=== PATIENT | female | born 1985 | race Caucasian/White ===

== ENCOUNTER 2016-09-14 19:16 | Emergency (ER) | payer OTHER ==
--- NOTE | 2016-09-14 21:19 | ED CLINICAL REPORT ---
Clinical Report - Physicians/Mid Levels [facility] [address] [place] [address] 09/14/2016 19:16 Patient: APOLLO CHANDLER Time Seen: 19:49 Sep 14 2016. Arrived- By private vehicle. Historian- patient. HISTORY OF PRESENT ILLNESS Chief Complaint: PELVIC PAIN. WANTS TEST. This started several days ago and still present. It was gradual in onset and has been waxing/waning. The symptoms are described as mild. Modifying factors- relieved by rest. Relief was complete. Not worsened by anything. The patient has had intermittent, crampy pelvic pain (noted yesterday and earlier today, but not now). No low back pain, flank pain, abnormal bleeding, pain with urination or urinary frequency. No urgency of urination or hematuria. Last normal menstrual period- 1 month ago. Currently . confirmed with home test. Similar symptoms previously: Recent medical care: Not recently seen/assessed. REVIEW OF SYSTEMS The patient has had nausea. No diarrhea, black stools, fever, eye discomfort or sore throat. No cough, chest pain or skin rash. All systems otherwise negative, except as recorded above. PAST HISTORY ( PCP: Dr Mackenzie or Dr Lawson Spontaneous (Miscarriage). Mood Disorder. Concussion. Vomiting. Pyelonephritis. Hypertension. SURGERIES: Colposcopy.). SOCIAL HISTORY Never smoker. No alcohol use or drug use. Is a local resident. ADDITIONAL NOTES The nursing notes have been reviewed. PHYSICAL EXAM Vital Signs: 09/14/2016 19:53 BP: 152/87. HR: 84. RR: 18. O2 saturation: 100%. Temp: 97.2 F. Appearance: Alert. Oriented X3. No acute distress. HEENT: Normal external inspection. Eyes: No scleral icterus or pale conjunctivae. ENT: Pharynx normal. No hearing deficit or pharyngeal erythema. Neck: Neck supple. CVS: Heart sounds normal. Respiratory: No respiratory distress. Breath sounds normal. Abdomen: Soft and nontender. No organomegaly. No mass. Back: Normal external inspection. Skin: Skin warm and dry. Normal skin color. No rash. Normal skin turgor. Extremities: Extremities nontender. No calf tenderness. No lower extremity edema. Neuro: Oriented X 3. Mood/affect normal. No motor deficit. LABS, X-RAYS, AND EKG Laboratory Tests: UA-Culture if indicated: (ERICKA: 09/14/2016 20:07) ( MsgRcvd 09/14/2016 21:14) Final results Test Result Flag Units (Reference) URINE COLOR YELLOW URINE APPEARANCE CLEAR URINE GLUCOSE NEGATIVE (NEGATIVE) URINE BILIRUBIN NEGATIVE (NEGATIVE) URINE KETONE NEGATIVE (NEGATIVE) URINE SPECIFIC GRAVITY 1.025 (1.010-1.030) URINE PH 6.0 (5.0-8.0) URINE PROTEIN NEGATIVE (NEGATIVE) URINE UROBILINOGEN 1.0 EU/dL (0.2-1.0) URINE NITRITE NEGATIVE (NEGATIVE) URINE BLOOD TRACE-INTACT (NEGATIVE) URINE LEUK ESTERASE NEGATIVE (NEGATIVE) URINE RBC 3-5 rbc/hpf (0-1) URINE WBC 1-3 wbc/hpf (0-1) URINE EPITHELIAL CELLS 1-3 EPI/hpf (0-5) URINE BACTERIA FEW (1+) (NONE SEEN) URINE COMMENT CULT NOT INDICATED URINE CULTURES ARE SET-UP BASED ON THE FOLLOWING CRITERIA:POSITIVE NITRITEPOSITIVE LEUKOCYTE ESTERASEGREATER THAN 10 WHITE BLOOD CELLSMODERATE (2+) OR GREATER BACTERIA . HCG: Urine HCG negative Pulse Oximetry: 09/14/2016 19:53 O2 saturation: 100%. (FIO2 - room air). Interpretation: normal. PROGRESS AND PROCEDURES Course of Care: No pain or bleeding tonight and completely nontender abdominal exam. Neg preg now. Pt should be safe for close out pt follow up. Patient/family counseled. Old medical records ordered. (7 visits to [facility] ED in past 12 months). Disposition: Discharged. Condition: stable and improved. CLINICAL IMPRESSION Acute pelvic pain. (with negative test). Clinical picture does not suggest ectopic . INSTRUCTIONS Do not work for two days. Drink plenty of fluids. Warnings: Further evaluation is necessary in order to conduct further tests and assess the possibility of serious illness. It is very important to follow up with a physician. GENERAL WARNINGS: Return or contact your physician immediately if your condition worsens or changes unexpectedly, if not improving as expected, or if other problems arise. OTC Medications: Take acetaminophen (Tylenol, Datril, etc.) and ibuprofen (Advil, Nuprin, etc.) according to label instructions. Available over the counter. Follow-up: Follow up with your doctor in two days. Follow-up with: Ramon Mackenzie MD, Family Practice, , [facility], [address] [address] [place] [address]; [facility], , , [address] [place] [address], , [place], ; [facility], , , [facility]. [address], [place] [address]; [facility], Family Practice, , [address] [place] [address] Follow up in about two days. Follow-up with: Ramon Samuels MD, Obstetrics/Gynecology, , [facility], [address] [place] [address] Follow up in about three days if not better. (Electronically signed by Dario Navarro DO 09/14/2016 21:42)
--- NOTE | 2016-09-14 21:19 | ED CLINICAL REPORT ---
Clinical Report - Physicians/Mid Levels [facility] [address] [place] [address] 09/14/2016 19:16 Patient: APOLLO CHANDLER Time Seen: 19:49 Sep 14 2016. Arrived- By private vehicle. Historian- patient. HISTORY OF PRESENT ILLNESS Chief Complaint: PELVIC PAIN. WANTS TEST. This started several days ago and still present. It was gradual in onset and has been waxing/waning. The symptoms are described as mild. Modifying factors- relieved by rest. Relief was complete. Not worsened by anything. The patient has had intermittent, crampy pelvic pain (noted yesterday and earlier today, but not now). No low back pain, flank pain, abnormal bleeding, pain with urination or urinary frequency. No urgency of urination or hematuria. Last normal menstrual period- 1 month ago. Currently . confirmed with home test. Similar symptoms previously: Recent medical care: Not recently seen/assessed. REVIEW OF SYSTEMS The patient has had nausea. No diarrhea, black stools, fever, eye discomfort or sore throat. No cough, chest pain or skin rash. All systems otherwise negative, except as recorded above. PAST HISTORY ( PCP: Dr Mackenzie or Dr Lawson Spontaneous (Miscarriage). Mood Disorder. Concussion. Vomiting. Pyelonephritis. Hypertension. SURGERIES: Colposcopy.). SOCIAL HISTORY Never smoker. No alcohol use or drug use. Is a local resident. ADDITIONAL NOTES The nursing notes have been reviewed. PHYSICAL EXAM Vital Signs: 09/14/2016 19:53 BP: 152/87. HR: 84. RR: 18. O2 saturation: 100%. Temp: 97.2 F. Appearance: Alert. Oriented X3. No acute distress. HEENT: Normal external inspection. Eyes: No scleral icterus or pale conjunctivae. ENT: Pharynx normal. No hearing deficit or pharyngeal erythema. Neck: Neck supple. CVS: Heart sounds normal. Respiratory: No respiratory distress. Breath sounds normal. Abdomen: Soft and nontender. No organomegaly. No mass. Back: Normal external inspection. Skin: Skin warm and dry. Normal skin color. No rash. Normal skin turgor. Extremities: Extremities nontender. No calf tenderness. No lower extremity edema. Neuro: Oriented X 3. Mood/affect normal. No motor deficit. LABS, X-RAYS, AND EKG Laboratory Tests: UA-Culture if indicated: (ERICKA: 09/14/2016 20:07) ( MsgRcvd 09/14/2016 21:14) Final results Test Result Flag Units (Reference) URINE COLOR YELLOW URINE APPEARANCE CLEAR URINE GLUCOSE NEGATIVE (NEGATIVE) URINE BILIRUBIN NEGATIVE (NEGATIVE) URINE KETONE NEGATIVE (NEGATIVE) URINE SPECIFIC GRAVITY 1.025 (1.010-1.030) URINE PH 6.0 (5.0-8.0) URINE PROTEIN NEGATIVE (NEGATIVE) URINE UROBILINOGEN 1.0 EU/dL (0.2-1.0) URINE NITRITE NEGATIVE (NEGATIVE) URINE BLOOD TRACE-INTACT (NEGATIVE) URINE LEUK ESTERASE NEGATIVE (NEGATIVE) URINE RBC 3-5 rbc/hpf (0-1) URINE WBC 1-3 wbc/hpf (0-1) URINE EPITHELIAL CELLS 1-3 EPI/hpf (0-5) URINE BACTERIA FEW (1+) (NONE SEEN) URINE COMMENT CULT NOT INDICATED URINE CULTURES ARE SET-UP BASED ON THE FOLLOWING CRITERIA:POSITIVE NITRITEPOSITIVE LEUKOCYTE ESTERASEGREATER THAN 10 WHITE BLOOD CELLSMODERATE (2+) OR GREATER BACTERIA . HCG: Urine HCG negative Pulse Oximetry: 09/14/2016 19:53 O2 saturation: 100%. (FIO2 - room air). Interpretation: normal. PROGRESS AND PROCEDURES Course of Care: No pain or bleeding tonight and completely nontender abdominal exam. Neg preg now. Pt should be safe for close out pt follow up. Patient/family counseled. Old medical records ordered. (7 visits to [facility] ED in past 12 months). Disposition: Discharged. Condition: stable and improved. CLINICAL IMPRESSION Acute pelvic pain. (with negative test). Clinical picture does not suggest ectopic . INSTRUCTIONS Do not work for two days. Drink plenty of fluids. Warnings: Further evaluation is necessary in order to conduct further tests and assess the possibility of serious illness. It is very important to follow up with a physician. GENERAL WARNINGS: Return or contact your physician immediately if your condition worsens or changes unexpectedly, if not improving as expected, or if other problems arise. OTC Medications: Take acetaminophen (Tylenol, Datril, etc.) and ibuprofen (Advil, Nuprin, etc.) according to label instructions. Available over the counter. Follow-up: Follow up with your doctor in two days. Follow-up with: Ramon Mackenzie MD, Family Practice, , [facility], [address] [address]; [facility], , , [address] [place] [address], , [place], ; [facility], , , [facility]. [address], [place] [address]; [facility], Family Practice, , [address] [place] [address] Follow up in about two days. Follow-up with: Ramon Samuels MD, Obstetrics/Gynecology, , [facility], [address] [place] [address] Follow up in about three days if not better. (Electronically signed by Dario Navarro DO 09/14/2016 21:42)
--- NOTE | 2016-09-14 21:19 | ED NURSING NOTES ---
Clinical Report - Nurses [facility] [address] [place] [address] 09/14/2016 19:16 Patient: APOLLO CHANDLER TRIAGE 19:53 09/14/16. BP: 152/87. HR: 84. RR: 18. O2 saturation: 100%. Temp: 97.2 F. Pain level now 0/10. --19:54 Quintin Rivera R.N. Triage time 19:54 Sep 14 2016. Acuity: LEVEL 5. Chief Complaint: NAUSEA. --19:59 Quintin Rivera R.N. Weight: 81.6 kg stated. Height/Length: 63 inches Per Patient. BMI: 31.9. --19:54 Quintin Rivera R.N. Medications Citalopram Hydrobromide Oral. --19:57 Quintin Rivera R.N. Allergies Oxycodone. --19:57 Quintin Rivera R.N. History ( Pt requesting blood test for miss carriage that she had recently. pt was positive for urine preg on friday). No fever, weakness, cough or difficulty breathing. SOCIAL HX: Never smoker. No alcohol use or drug use. --19:59 Quintin Rivera R.N. PROBLEMS: Spontaneous (Miscarriage). OB History. Mood Disorder. . Concussion. Vomiting. Pyelonephritis. Hypertension. --19:56 Quintin Rivera R.N. ADDITIONAL SURGERIES: Colposcopy. --19:56 Quintin Rivera R.N. Interventions ID band on patient. To treatment room. --19:59 Quintin Rivera R.N. NURSING PROGRESS NOTES Call light placed in reach. Side rails up x 1. Bed placed in lowest position. Patient placed in chair. ( POC preg urine neg). --20:22 Quintin Rivera R.N. DISPOSITION / DISCHARGE Departure time: 2133 21:39 Sep 14 2016 21:39 Sep 14 2016. No learning barriers present. Discharge instructions provided and reviewed with the patient. Patient verbalized understanding. Written instructions provided in Mongolian. The patient was discharged by the physician. She was discharged home and accompanied by vp business development. She left the Emergency Department ambulatory. ( Pt ambulated on discharge steady on her feet pt verbalized understand of discharge instructions and follow up care). --21:39 Quintin Rivera R.N. 21:38 09/14/16. BP: 138/78. HR: 70. RR: 18. O2 saturation: 100%. Temp: 98.0 F. Pain level now 0/10. --21:39 Quintin Rivera R.N. Locked/Released at 09/15/2016 4:15 by Quintin Rivera R.N.
--- NOTE | 2016-09-14 21:19 | ED ORDER SUMMARY ---
..... Patient: APOLLO CHANDLER OrderSheet [facility] VisitID: [id number] [address] [place] [address] 31y, F Registration Date/Time: 09/14/2016 ORDER SHEET Weight: 81.6 kg (stated) Allergies: Oxycodone GENERAL ORDERS: POC - Urine hCG (19:59 09/14/2016 Denis MORRIS) (Ack 20:08 TBergley) (20:21 TBergley) UA-Culture if indicated Urgent (20:05 09/14/2016 jono MORRIS) (Ack 20:07 TBergley) (20:21 TBergley) MEDICATION ORDERS: IV FLUIDS: ORDER SHEET NOTES: [Electronically signed by Dario Navarro DO (21:42 09/14/2016)] [Electronically signed by Quintin Rivera R.N. (04:15 09/15/2016)] [Electronically locked/signed by Quintin Rivera R.N. (04:15 09/15/2016)]
--- NOTE | 2016-09-14 21:19 | ED NURSING NOTES ---
Clinical Report - Nurses [facility] [address] [place] [address] 09/14/2016 19:16 Patient: APOLLO CHANDLER TRIAGE 19:53 09/14/16. BP: 152/87. HR: 84. RR: 18. O2 saturation: 100%. Temp: 97.2 F. Pain level now 0/10. --19:54 Quintin Rivera R.N. Triage time 19:54 Sep 14 2016. Acuity: LEVEL 5. Chief Complaint: NAUSEA. --19:59 Quintin Rivera R.N. Weight: 81.6 kg stated. Height/Length: 63 inches Per Patient. BMI: 31.9. --19:54 Quintin Rivera R.N. Medications Citalopram Hydrobromide Oral. --19:57 Quintin Rivera R.N. Allergies Oxycodone. --19:57 Quintin Rivera R.N. History ( Pt requesting blood test for miss carriage that she had recently. pt was positive for urine preg on friday). No fever, weakness, cough or difficulty breathing. SOCIAL HX: Never smoker. No alcohol use or drug use. --19:59 Quintin Rivera R.N. PROBLEMS: Spontaneous (Miscarriage). OB History. Mood Disorder. . Concussion. Vomiting. Pyelonephritis. Hypertension. --19:56 Quintin Rivera R.N. ADDITIONAL SURGERIES: Colposcopy. --19:56 Quintin Rivera R.N. Interventions ID band on patient. To treatment room. --19:59 Quintin Rivera R.N. NURSING PROGRESS NOTES Call light placed in reach. Side rails up x 1. Bed placed in lowest position. Patient placed in chair. ( POC preg urine neg). --20:22 Quintin Rivera R.N. DISPOSITION / DISCHARGE Departure time: 2133 21:39 Sep 14 2016 21:39 Sep 14 2016. No learning barriers present. Discharge instructions provided and reviewed with the patient. Patient verbalized understanding. Written instructions provided in French. The patient was discharged by the physician. She was discharged home and accompanied by fingerprinter. She left the Emergency Department ambulatory. ( Pt ambulated on discharge steady on her feet pt verbalized understand of discharge instructions and follow up care). --21:39 Quintin Rivera R.N. 21:38 09/14/16. BP: 138/78. HR: 70. RR: 18. O2 saturation: 100%. Temp: 98.0 F. Pain level now 0/10. --21:39 Quintin Rivera R.N. Locked/Released at 09/15/2016 4:15 by Quintin Rivera R.N.
--- NOTE | 2016-09-14 21:19 | ED ORDER SUMMARY ---
..... Patient: APOLLO CHANDLER OrderSheet [facility] VisitID: [id number] [address] [place] [address] 31y, F Registration Date/Time: 09/14/2016 ORDER SHEET Weight: 81.6 kg (stated) Allergies: Oxycodone GENERAL ORDERS: POC - Urine hCG (19:59 09/14/2016 Denis MORRIS) (Ack 20:08 TBergley) (20:21 TBergley) UA-Culture if indicated Urgent (20:05 09/14/2016 jono MORRIS) (Ack 20:07 TBergley) (20:21 TBergley) MEDICATION ORDERS: IV FLUIDS: ORDER SHEET NOTES: [Electronically signed by Dario Navarro DO (21:42 09/14/2016)] [Electronically signed by Quintin Rivera R.N. (04:15 09/15/2016)] [Electronically locked/signed by Quintin Rivera R.N. (04:15 09/15/2016)]
--- NOTE | 2016-09-15 04:15 | ED DISCHARGE INSTRUCTIONS ---
Patient: APOLLO CHANDLER General Instructions [facility] VisitID: [id number] [address] [place] [address] 31y, F Registration Date/Time: 09/14/2016 Acute pelvic pain. (with negative test). INSTRUCTIONS Do not work for two days. Drink plenty of fluids. Warnings: Further evaluation is necessary in order to conduct further tests and assess the possibility of serious illness. It is very important to follow up with a physician. GENERAL WARNINGS: Return or contact your physician immediately if your condition worsens or changes unexpectedly, if not improving as expected, or if other problems arise. OTC Medications: Take acetaminophen (Tylenol, Datril, etc.) and ibuprofen (Advil, Nuprin, etc.) according to label instructions. Available over the counter. Follow-up: Follow up with your doctor in two days. Follow-up with: Ramon Mackenzie MD, [facility], , [facility], [address] [place] [address]; [facility], , , [address] [place] [address], ; [facility], , , [facility] [address], [place] [address]; [facility], [facility], , [address] [place] [address] Follow up in about two days. Follow-up with: Ramon Samuels MD, Obstetrics/Gynecology, , [facility], [address] [place] [address] Follow up in about three days if not better. ADDITIONAL INFORMATION Pelvic Pain, Uncertain Cause Based on your visit today, the exact cause of your pelvic pain is not certain. But your condition does not appear to be serious at this time. However, the signs of a serious problem may take more time to appear. Therefore, it is important for you to watch for any new symptoms or worsening of your condition. Home Care: Rest until you are feeling better. Avoid sexual intercourse until your pain goes away. You may use acetaminophen (Tylenol) or ibuprofen (Motrin, Advil) to control pain, unless another medicine was prescribed. [NOTE: If you have chronic liver or kidney disease or ever had a stomach ulcer or GI bleeding, talk with your doctor before using these medicines.] Follow Up with your doctor as advised. If a culture test was taken, call in two days for the results. If the culture is positive, you will be given more advice at that time. Otherwise, follow-up with your doctor or this facility as instructed. Get Prompt Medical Attention if any of the following occur: Fever of 100.4F (38C) or higher, or as directed by your healthcare provider Vaginal discharge Worsening pain Weakness, dizziness or fainting Unexpected vaginal bleeding or passage of peña or white tissue from the vagina Pain that moves to the right lower abdomen You have been given the following additional information: Pelvic Pain, Unknown Cause Do not work for two days. (Electronically signed by Dario Navarro DO 09/14/2016 21:42)
--- NOTE | 2016-09-15 04:15 | ED MED RECONCILIATION SUMMARY ---
Patient: APOLLO CHANDLER Medication Reconciliation Report [facility] VisitID: [id number] [place] [address] 31y, F Registration Date/Time: 09/14/2016 Weight: 81.6 kg Height/Length: 63 in. BMI: 31.9 ALLERGIES: Oxycodone The patient's Home Medications are listed below: THE FOLLOWING MEDICATIONS NEED TO BE RECONCILED: Citalopram Hydrobromide Oral The source(s) of the original Home Medication information: Not obtained. The following Medications were given to the patient in the Emergency Department: None. The following Medications were prescribed to the patient: Take acetaminophen (Tylenol, Datril, etc.) and ibuprofen (Advil, Nuprin, etc.) according to label instructions. Available over the counter. -- Dario Navarro, DO
--- NOTE | 2016-09-15 04:15 | ED MAR SUMMARY ---
..... Medication Administration Record [facility] [address] [place], [place] [id number] Patient: APOLLO CHANDLER Visit ID: [id number] 31y, F Weight: 81.6 kg Height/Length: 63 in BMI: 31.9 ALLERGIES: Oxycodone
--- NOTE | 2016-09-15 04:15 | ED DISCHARGE INSTRUCTIONS ---
Patient: APOLLO CHANDLER General Instructions [facility] VisitID: [id number] [address] [place] [address] 31y, F Registration Date/Time: 09/14/2016 Acute pelvic pain. (with negative test). INSTRUCTIONS Do not work for two days. Drink plenty of fluids. Warnings: Further evaluation is necessary in order to conduct further tests and assess the possibility of serious illness. It is very important to follow up with a physician. GENERAL WARNINGS: Return or contact your physician immediately if your condition worsens or changes unexpectedly, if not improving as expected, or if other problems arise. OTC Medications: Take acetaminophen (Tylenol, Datril, etc.) and ibuprofen (Advil, Nuprin, etc.) according to label instructions. Available over the counter. Follow-up: Follow up with your doctor in two days. Follow-up with: Ramon Mackenzie MD, [facility], , [facility], [address] [place] [address]; [facility], , , [address] [place] [address], ; [facility], , , [facility] [address], [place] [address]; [facility], [facility], , [address] [place] [address] Follow up in about two days. Follow-up with: Ramon Samuels MD, Obstetrics/Gynecology, , [facility], [address] [place] [address] Follow up in about three days if not better. ADDITIONAL INFORMATION Pelvic Pain, Uncertain Cause Based on your visit today, the exact cause of your pelvic pain is not certain. But your condition does not appear to be serious at this time. However, the signs of a serious problem may take more time to appear. Therefore, it is important for you to watch for any new symptoms or worsening of your condition. Home Care: Rest until you are feeling better. Avoid sexual intercourse until your pain goes away. You may use acetaminophen (Tylenol) or ibuprofen (Motrin, Advil) to control pain, unless another medicine was prescribed. [NOTE: If you have chronic liver or kidney disease or ever had a stomach ulcer or GI bleeding, talk with your doctor before using these medicines.] Follow Up with your doctor as advised. If a culture test was taken, call in two days for the results. If the culture is positive, you will be given more advice at that time. Otherwise, follow-up with your doctor or this facility as instructed. Get Prompt Medical Attention if any of the following occur: Fever of 100.4F (38C) or higher, or as directed by your healthcare provider Vaginal discharge Worsening pain Weakness, dizziness or fainting Unexpected vaginal bleeding or passage of peña or white tissue from the vagina Pain that moves to the right lower abdomen You have been given the following additional information: Pelvic Pain, Unknown Cause Do not work for two days. (Electronically signed by Dario Navarro DO 09/14/2016 21:42)
--- NOTE | 2016-09-15 04:15 | ED MAR SUMMARY ---
..... Medication Administration Record [facility] [address] [place], [place] [id number] Patient: APOLLO CHANDLER Visit ID: [id number] 31y, F Weight: 81.6 kg Height/Length: 63 in BMI: 31.9 ALLERGIES: Oxycodone
--- NOTE | 2016-09-15 04:15 | ED MED RECONCILIATION SUMMARY ---
Patient: APOLLO CHANDLER Medication Reconciliation Report [facility] VisitID: [id number] [place] [address] 31y, F Registration Date/Time: 09/14/2016 Weight: 81.6 kg Height/Length: 63 in. BMI: 31.9 ALLERGIES: Oxycodone The patient's Home Medications are listed below: THE FOLLOWING MEDICATIONS NEED TO BE RECONCILED: Citalopram Hydrobromide Oral The source(s) of the original Home Medication information: Not obtained. The following Medications were given to the patient in the Emergency Department: None. The following Medications were prescribed to the patient: Take acetaminophen (Tylenol, Datril, etc.) and ibuprofen (Advil, Nuprin, etc.) according to label instructions. Available over the counter. -- Dario Navarro, DO
== END 2016-09-14 21:34 | disposition home or self-care (01) ==
LOC: ED SRH 19:16
DX: R10.2 Pelvic and perineal pain (principal); Z32.02 Encounter for pregnancy test, result negative; I10 Essential (primary) hypertension; Z88.5 Allergy status to narcotic agent
CPT/HCPCS: 90004; 93070

== ENCOUNTER 2017-02-23 22:05 | Emergency (ER) | payer OTHER ==
--- NOTE | 2017-02-23 23:28 | ED NURSING NOTES ---
Clinical Report - Nurses [facility] [address] [place] [address] 02/23/2017 22:05 Patient: APOLLO CHANDLER TRIAGE Triage time 22:19. Acuity: LEVEL 3. Chief Complaint: NAUSEA and VOMITING. --22:26 Anahy Watts R.N. 22:19 02/23/17. BP: 128/63 taken on the left arm, while lying. HR: 69 (regular and normal rate). RR: 18. O2 saturation: 98%. Temp: 98.3 F (oral). Pain level now: 0/10. --22:26 Anahy Watts R.N. Weight: 91.6 kg stated. Height/Length: 67 inches Per Patient. BMI: 31.7. --22:23 Anahy Watts R.N. Medications Zofran Oral (Tablet 4 mg) 1 tablet, 3x a day. --22:25 Anahy Watts R.N. Allergies Oxycodone. Definite Severe(vomiting) --22:25 Anahy Watts R.N. morphine. Definite Severe(vomiting) (agitation) --22:26 Anahy Watts R.N. History Arrived by private vehicle. Historian: patient. Accompanied by family. Primary physician ([facility]). ( history of hyperemesis, 13 week , vomiting "handful of times" today not eaten since Friday. hx of kidney infections without symptoms until late stages.). 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 PAST MEDICAL HX: Immunizations: up-to-date. 9. Para 2. Currently : LNMP: November 25, 2016. In 2nd trimester. confirmed with sonogram. G 9. P 2. SOCIAL HX: Smoker- current status unknown. Occasional alcohol use. No drug use. No infectious disease exposure. No known contact with a sick individual. ABUSE ASSESSMENT: No report of abuse. SELF HARM ASSESSMENT: A self harm assessment was performed. The patient answered "no" to the question "Have you recently felt down, depressed, or hopeless?", "Have you noticed less interest or pleasure in doing things?", "Do you have thoughts of harming or killing yourself?", "Are you here because you tried to hurt yourself?", "Have you ever tried to hurt yourself before today?", "Have you recently had thoughts about harming or killing others?" and "Do you have any dangerous items in your possession?". FALL RISK ASSESSMENT: Fall risk assessment completed. No fall risk identified. NUTRITIONAL RISK ASSESSMENT: The nutritional risk assessment revealed no deficiencies. FUNCTIONAL ASSESSMENT: Functional assessment: no impairments noted. LEARNING NEEDS ASSESSMENT: The learning needs assessment revealed no barriers. SKIN INTEGRITY ASSESSMENT: Skin integrity risk assessment completed. No skin integrity risk identified. --22:26 Anahy Watts R.N. PROBLEMS: Pelvic Pain. Spontaneous (Miscarriage). OB History. Left leg laceration. Laceration. Mood Disorder. Thrush. Concussion. Nerve damage top of head. TMJ Syndrome. Vomiting. UTI - Urinary Tract Infection. Abdominal Pain. Pyelonephritis. Dental Pain. Hypertension. Immunizations. LNMP - Last Normal Menstrual Period. --22:26 Anahy Watts R.N. ADDITIONAL SURGERIES: Colposcopy. --22:26 Anahy Watts R.N. Interventions ID band on patient. To treatment room. --22:26 Anahy Watts R.N. PHYSICAL ASSESSMENT Ambulatory to room. GENERAL / NEURO / PSYCH: Alert. Oriented X 4. Appears in no acute distress. HEENT: Mucous membranes are pink. RESPIRATORY: Respirations not labored. Breath sounds within normal limits. CVS: Normal sinus rhythm noted. Capillary refill less than 2 seconds. GI / : Abdomen soft and nontender. Bowel sounds within normal limits. SKIN: Skin is warm and dry. --22:27 Anahy Watts R.N. NURSING PROGRESS NOTES Patient gowned. Two patient identifiers checked. Call light placed in reach. Side rails up x 1. Bed placed in lowest position. Brakes of bed on. Patient ready for evaluation- chart flagged. --22:27 Anahy Watts R.N. 22:30 02/23/2017 Site #1 started via IV in the right antecubital space with an 20g angiocath, with aseptic technique and good blood return; one attempt. Blood drawn: rainbow set. Labeled in the presence of the patient and sent to the lab. Saline lock flushed with 10 mL saline. --22:45 Anahy Watts R.N. 22:40 02/23/2017 Started bag #1 1000 mL IV Fluids IV NS (Saline); bolus of 1000 mL wide open then over 1 hour(s) via site #1. Allergies verified and confirmed 5 rights. IV patency established. IV site checked: no pain, redness, or swelling. IV flushed thoroughly pre- and post-medication administration. --22:45 Anahy Watts R.N. 22:49 02/23/2017 Reglan (Metoclopramide HCl) IVP 10 mg given over 2 minute(s) via site #1. Allergies verified and confirmed 5 rights. IV patency established. IV site checked: no pain, redness, or swelling. IV flushed thoroughly pre- and post-medication administration. IVP given by RN. --22:49 Anahy Watst R.N. ( [facility] 142). --23:14 Anahy Watts R.N. DISPOSITION / DISCHARGE 23:40 02/23/2017 IV Fluids IV NS Discontinued: completed upon discharge. Total amount infused: 1000 mL. IV patency established. IV site checked: no pain, redness, or swelling. IV flushed thoroughly. --23:49 Anahy Watts R.N. 23:45 02/23/2017 Site #1 removed upon discharge. Catheter intact. Manual pressure and bandage applied. --23:49 Anahy Watts R.N. 23:45 02/23/2017 IV Saline Lock Drip IV Discontinued: upon discharge. Total amount infused: 0 mL. IV patency established. IV site checked: no pain, redness, or swelling. IV flushed thoroughly. --23:49 Anahy Watts R.N. Departure time: 2344. Condition at departure: improved and stable. No learning barriers present. Discharge instructions provided and reviewed with the patient and spouse. Reviewed medication(s) side effects, precautions, dosing and course information. Prescription(s) given to the patient. Reviewed need for increased fluid intake (as tolerated). Patient verbalized understanding. Written instructions provided in Chinese. No referrals given to the patient. The patient was discharged home and accompanied by spouse. She left the Emergency Department ambulatory and via private vehicle. Spouse driving. --23:50 Anahy Watts R.N. 23:48 02/23/17. BP: 131/74 taken on the left arm, while lying. HR: 82 (regular and normal rate). RR: 18 (regular and unlabored). O2 saturation: 99% on room air. Temp: deferred. Pain level now: 0/10. --23:50 Anahy Watts R.N. Locked/Released at 02/23/2017 23:51 by Anahy Watts R.N.
--- NOTE | 2017-02-23 23:28 | ED ORDER SUMMARY ---
..... Patient: APOLLO CHANDLER OrderSheet [facility] VisitID: [id number] [place] [address] 32y, F Registration Date/Time: 02/23/2017 ORDER SHEET Weight: 91.6 kg (stated) Allergies: Oxycodone, morphine GENERAL ORDERS: UA-Culture if indicated Urgent (22:28 02/23/2017 HBivens A.R.N.P.) (Ack 22:38 AMcQuoid ER Tech1) (22:44 CBradburn R.N.) CBC w Diff Urgent (22:28 02/23/2017 HBivens A.R.N.P.) (Ack 22:38 AMcQuoid ER Tech1) (22:44 CBradburn R.N.) CMP Urgent (22:28 02/23/2017 HBivens A.R.N.P.) (Ack 22:38 AMcQuoid ER Tech1) (22:44 CBradburn R.N.) Serum Quantitative Urgent (22:28 02/23/2017 HBivens A.R.N.P.) (Ack 22:38 AMcQuoid ER Tech1) (22:44 CBradburn R.N.) Lipase Urgent (22:28 02/23/2017 HBivens A.R.N.P.) (Ack 22:38 AMcQuoid ER Tech1) (22:44 CBradburn R.N.) Amylase Urgent (22:28 02/23/2017 HBivens A.R.N.P.) (Ack 22:38 AMcQuoid ER Tech1) (22:44 CBradburn R.N.) Heart Tones (22:29 02/23/2017 HBivens A.R.N.P.) (Ack 22:38 AMcQuoid ER Tech1) (22:44 CBradburn R.N.) MEDICATION ORDERS: IV FLUIDS: IV NS : initial bolus 1000 mL (1000 mL/hr), then none - (NOW) (22:28 02/23/2017 HBivens A.R.N.P.) (22:45 CBradburn R.N.) Reglan IV 10 mg (NOW) (22:28 02/23/2017 HBivens A.R.N.P.) (22:49 Jesu R.N.) IV Saline Lock (22:28 02/23/2017 HBivens A.R.N.P.) (22:45 Jesu R.N.) ORDER SHEET NOTES: [Electronically signed by Anahy Watts R.N. (23:51 02/23/2017)] [Electronically signed by Laura TorresR.N.PVern (13:32 02/24/2017)] [Electronically locked/signed by Anahy Watts R.N. (23:51 02/23/2017)]
--- NOTE | 2017-02-23 23:28 | ED CLINICAL REPORT ---
Clinical Report - Physicians/Mid Levels [facility] [address] [place] [address] 02/23/2017 22:05 Patient: APOLLO CHANDLER Time Seen: 2216; upon arrival, initial patient contact, initial documentation, patient care assumed. Arrived- By private vehicle. Historian- patient. HISTORY OF PRESENT ILLNESS Chief Complaint: VOMITING. This started about 3 days ago and is still present. No recent travel. She has had nausea. She has had severe vomiting. The vomiting has occurred numerous times and has been bilious. No feculent emesis, blood-tinged emesis, coffee-grounds emesis, frankly bloody emesis or unusually dark emesis. No diarrhea, black stools, bloody stools, abdominal pain or constipation. No flank pain, history of possible bad food exposure, known contact with a sick individual or change in routine. Has not recently been camping or on antibiotics. The illness is described as moderate. (took zofran earlier today, didn't help). Similar symptoms previously: Chronically, milder. ( says she gets chronic kidney and bladder infections, without s/s except for vomiting so she thinks this vomiting episode could be that again, also dx with hyper emesis). Recent medical care: Not recently seen/assessed. REVIEW OF SYSTEMS No fever, difficulty with urination, dark urine, cough or chest pain. No difficulty breathing. Currently : In 1st trimester. Has had care by private doctor. G 9. P 2. Ab 6. All systems otherwise negative, except as recorded above. PAST HISTORY See nurses notes. Spontaneous (Miscarriage). OB History. Mood Disorder. . Concussion. Vomiting. Pyelonephritis. Hypertension. --19:56 Quintin Rivera, RPromise. ADDITIONAL SURGERIES: Colposcopy. --19:56 Quintin Rivera R.N. SOCIAL HISTORY Never smoker. Occasional alcohol use. No drug use. No recent travel. Is a local resident. FAMILY HISTORY Negative. ADDITIONAL NOTES The nursing notes have been reviewed with agreement regarding the chief complaint, HPI, ROS, PMH and patient medications and allergies. PHYSICAL EXAM Vital Signs: 02/23/2017 22:19 BP: 128/63. HR: 69. RR: 18. O2 saturation: 98%. Temp: 98.3 F. Pain level now: 0/10. Have been reviewed as normal and appear to be correct. Appearance: Alert. Oriented X3. No acute distress. Eyes: Pupils equal, round and reactive to light. Eyes normal inspection. Neck: Normal inspection. Neck supple. CVS: Normal heart rate and rhythm. Heart sounds normal. Pulses normal. Respiratory: No respiratory distress. Breath sounds normal. Abdomen: Soft and nontender. Bowel sounds normal. No organomegaly. No mass. Back: Normal inspection. Skin: Skin warm and dry. Normal skin color. No rash. Normal skin turgor. Extremities: Extremities exhibit normal ROM. No lower extremity edema. Neuro: Oriented X 3. No motor deficit. No sensory deficit. LABS, X-RAYS, AND EKG Laboratory Tests: UA-Culture if indicated: (ERICKA: 02/23/2017 22:30) ( [facility] [place] 02/23/2017 23:00) Final results Test Result Flag Units (Reference) URINE COLOR YELLOW URINE APPEARANCE SL CLOUDY URINE GLUCOSE NEGATIVE (NEGATIVE) URINE BILIRUBIN NEGATIVE (NEGATIVE) URINE KETONE 1+ (NEGATIVE) URINE SPECIFIC GRAVITY 1.020 (1.010-1.030) URINE PH 7.0 (5.0-8.0) URINE PROTEIN NEGATIVE (NEGATIVE) URINE UROBILINOGEN 1.0 EU/dL (0.2-1.0) URINE NITRITE NEGATIVE (NEGATIVE) URINE BLOOD NEGATIVE (NEGATIVE) URINE LEUK ESTERASE POSITIVE (NEGATIVE) URINE RBC RARE rbc/hpf (0-1) URINE WBC 3-5 wbc/hpf (0-1) URINE EPITHELIAL CELLS 3-5 EPI/hpf (0-5) URINE BACTERIA NONE SEEN (NONE SEEN) URINE COMMENT CULTURE INDICATED 3+ AMORPHOUSURINE CULTURES ARE SET-UP BASED ON THE FOLLOWING CRITERIA:POSITIVE NITRITEPOSITIVE LEUKOCYTE ESTERASEGREATER THAN 10 WHITE BLOOD CELLSMODERATE (2+) OR GREATER BACTERIA CBC w Diff: (ERICKA: 02/23/2017 22:30) ( [facility] [place] 02/23/2017 22:56) Final results Test Result Flag Units (Reference) WHITE BLOOD COUNT 10.9 K/uL (4.5-11.5) RED BLOOD COUNT 4.23 M/uL (4.00-5.20) HEMOGLOBIN 13.3 gm/dL (12.0-16.0) HEMATOCRIT 38.6 % (36.0-46.0) MEAN CELL VOLUME 91 fL (80-100) MEAN CORPUSCULAR HGB 31 pg (26-34) MEAN CORPUSCULAR HGB CONC 34 g/dL (31-37) RED CELL DISTRIBUTION WIDTH 12.9 % (11.6-14.8) PLATELET COUNT 216 K/uL (150-400) NEUTROPHIL % 82.4 H % (50-75) LYMPH % 13.7 L % (25-40) MONO % 2.9 L % (3-14) EOSINOPHIL % 0.7 % (0-4) BASOPHIL % 0.3 % (0-2) CMP: (ERICKA: 02/23/2017 22:30) ( [facility] 02/23/2017 23:25) Final results Test Result Flag Units (Reference) GLUCOSE 83 mg/dL (70-110) BUN 10 mg/dL (7-18) CREATININE 0.8 mg/dL (0.6-1.3) Estimated GFR >60 mL/min Estimated GFR- >60 mL/min Note: Persistent reduction over 3 months in eGFR<60 mL/min/1.73 m2 defines CKD. Patients with eGFR values>=60 mL/min/1.73 m2 may also have CKD if evidence ofpersistent proteinuria. Additional information may be foundat www.kidney.org. SODIUM 133 L mmol/L (136-145) POTASSIUM 3.3 L mmol/L (3.5-5.1) CHLORIDE 100 mmol/L (98-107) CARBON DIOXIDE 27 mmol/L (21-32) CALCIUM 9.1 mg/dL (8.5-10.1) TOTAL PROTEIN 7.1 g/dL (6.4-8.2) ALBUMIN 3.6 g/dL (3.3-5.0) BILIRUBIN, TOTAL 0.4 mg/dL (0.0-1.0) ALKALINE PHOSPHATASE 47 U/L (46-116) AST (SGOT) 14 L U/L (15-37) ALT (SGPT) 21 U/L (12-78) LIPASE 85 U/L (73-393) AMYLASE 45 U/L (25-115) BETA HCG, QUANTITATIVE 50029 mIU/mL REFERENCE RANGE:Adult Males: <2 mIU/mLNon- Females: <6 mIU/mL Females:Approximate Approximate hCGGestational Age Range (mIU/mL) 0-1 week 0-501-2 weeks 40-3002-3 weeks 100-78630-0 weeks 500-40685-6 months 5,000-200,0002-3 months 10,000-100,0002nd trimester 3,000-50,0003rd trimester 1,000-50,000 . PROGRESS AND PROCEDURES Course of Care: T's 142 per nurse. Patient counseled in person regarding the patient's stable condition, test results and diagnosis. 23:26. Differential Diagnosis: I considered gastritis, peptic ulcer disease, gastroesophageal reflux disease, gastroparesis, Crohn's disease, ulcerative colitis, gastric outlet obstruction, colonic obstruction, colon cancer, gastroenteritis, cholecystitis, pancreatitis, viral syndrome, enterocolitis, urinary tract infection, hepatitis, sepsis, drugs, and psychogenic etiology as a possible cause of vomiting in this patient. This is a partial list of diagnoses considered. (uti, pyelo). Above considerations are based on history, physical exam, reassessment and laboratory data. Differential diagnosis was discussed with patient. Disposition: Discharged home in good and improved condition (23:28). Condition: good and stable. CLINICAL IMPRESSION Acute urinary tract infection with cystitis. No pyelonephritis or hematuria. Not associated with indwelling catheter or obstruction. Intractable vomiting with nausea. No dehydration or volume depletion. Not bilious. INSTRUCTIONS Take clear liquids only (frequent sips) for the next 24 hours until better. May continue medications with sips only. Advance diet as tolerated. Avoid. Warnings: GENERAL WARNINGS: Return or contact your physician immediately if your condition worsens or changes unexpectedly, if not improving as expected, or if other problems arise. SPECIFICALLY, return if you develop pain in the abdomen, fever, the inability to keep fluids down, blood in vomitus, blood in diarrhea, fainting, lightheadedness or vaginal bleeding. Prescription Medications: Macrobid 100 mg: Take 1 capsule orally every 12 hours for 7 days. No refills. Substitution is permissible. Reglan 10 mg tablets: take 1 orally every 6 hours. Dispense fifteen (15). No refills. Follow-up: Follow up with your doctor in about two days even if well. Call for an appointment. Summary of care provided to patient. Understanding of the discharge instructions verbalized by patient. (Electronically signed by Laura Torres A.R.N.P. 02/24/2017 13:32)
--- NOTE | 2017-02-23 23:28 | ED CLINICAL REPORT ---
Clinical Report - Physicians/Mid Levels [facility] [address] [place] [address] 02/23/2017 22:05 Patient: APOLLO CHANDLER Time Seen: 2216; upon arrival, initial patient contact, initial documentation, patient care assumed. Arrived- By private vehicle. Historian- patient. HISTORY OF PRESENT ILLNESS Chief Complaint: VOMITING. This started about 3 days ago and is still present. No recent travel. She has had nausea. She has had severe vomiting. The vomiting has occurred numerous times and has been bilious. No feculent emesis, blood-tinged emesis, coffee-grounds emesis, frankly bloody emesis or unusually dark emesis. No diarrhea, black stools, bloody stools, abdominal pain or constipation. No flank pain, history of possible bad food exposure, known contact with a sick individual or change in routine. Has not recently been camping or on antibiotics. The illness is described as moderate. (took zofran earlier today, didn't help). Similar symptoms previously: Chronically, milder. ( says she gets chronic kidney and bladder infections, without s/s except for vomiting so she thinks this vomiting episode could be that again, also dx with hyper emesis). Recent medical care: Not recently seen/assessed. REVIEW OF SYSTEMS No fever, difficulty with urination, dark urine, cough or chest pain. No difficulty breathing. Currently : In 1st trimester. Has had care by private doctor. G 9. P 2. Ab 6. All systems otherwise negative, except as recorded above. PAST HISTORY See nurses notes. Spontaneous (Miscarriage). OB History. Mood Disorder. . Concussion. Vomiting. Pyelonephritis. Hypertension. --19:56 Quintin Rivera, RPromise. ADDITIONAL SURGERIES: Colposcopy. --19:56 Quintin Rivera R.N. SOCIAL HISTORY Never smoker. Occasional alcohol use. No drug use. No recent travel. Is a local resident. FAMILY HISTORY Negative. ADDITIONAL NOTES The nursing notes have been reviewed with agreement regarding the chief complaint, HPI, ROS, PMH and patient medications and allergies. PHYSICAL EXAM Vital Signs: 02/23/2017 22:19 BP: 128/63. HR: 69. RR: 18. O2 saturation: 98%. Temp: 98.3 F. Pain level now: 0/10. Have been reviewed as normal and appear to be correct. Appearance: Alert. Oriented X3. No acute distress. Eyes: Pupils equal, round and reactive to light. Eyes normal inspection. Neck: Normal inspection. Neck supple. CVS: Normal heart rate and rhythm. Heart sounds normal. Pulses normal. Respiratory: No respiratory distress. Breath sounds normal. Abdomen: Soft and nontender. Bowel sounds normal. No organomegaly. No mass. Back: Normal inspection. Skin: Skin warm and dry. Normal skin color. No rash. Normal skin turgor. Extremities: Extremities exhibit normal ROM. No lower extremity edema. Neuro: Oriented X 3. No motor deficit. No sensory deficit. LABS, X-RAYS, AND EKG Laboratory Tests: UA-Culture if indicated: (ERICKA: 02/23/2017 22:30) ( [facility] [place] 02/23/2017 23:00) Final results Test Result Flag Units (Reference) URINE COLOR YELLOW URINE APPEARANCE SL CLOUDY URINE GLUCOSE NEGATIVE (NEGATIVE) URINE BILIRUBIN NEGATIVE (NEGATIVE) URINE KETONE 1+ (NEGATIVE) URINE SPECIFIC GRAVITY 1.020 (1.010-1.030) URINE PH 7.0 (5.0-8.0) URINE PROTEIN NEGATIVE (NEGATIVE) URINE UROBILINOGEN 1.0 EU/dL (0.2-1.0) URINE NITRITE NEGATIVE (NEGATIVE) URINE BLOOD NEGATIVE (NEGATIVE) URINE LEUK ESTERASE POSITIVE (NEGATIVE) URINE RBC RARE rbc/hpf (0-1) URINE WBC 3-5 wbc/hpf (0-1) URINE EPITHELIAL CELLS 3-5 EPI/hpf (0-5) URINE BACTERIA NONE SEEN (NONE SEEN) URINE COMMENT CULTURE INDICATED 3+ AMORPHOUSURINE CULTURES ARE SET-UP BASED ON THE FOLLOWING CRITERIA:POSITIVE NITRITEPOSITIVE LEUKOCYTE ESTERASEGREATER THAN 10 WHITE BLOOD CELLSMODERATE (2+) OR GREATER BACTERIA CBC w Diff: (ERICKA: 02/23/2017 22:30) ( [facility] [place] 02/23/2017 22:56) Final results Test Result Flag Units (Reference) WHITE BLOOD COUNT 10.9 K/uL (4.5-11.5) RED BLOOD COUNT 4.23 M/uL (4.00-5.20) HEMOGLOBIN 13.3 gm/dL (12.0-16.0) HEMATOCRIT 38.6 % (36.0-46.0) MEAN CELL VOLUME 91 fL (80-100) MEAN CORPUSCULAR HGB 31 pg (26-34) MEAN CORPUSCULAR HGB CONC 34 g/dL (31-37) RED CELL DISTRIBUTION WIDTH 12.9 % (11.6-14.8) PLATELET COUNT 216 K/uL (150-400) NEUTROPHIL % 82.4 H % (50-75) LYMPH % 13.7 L % (25-40) MONO % 2.9 L % (3-14) EOSINOPHIL % 0.7 % (0-4) BASOPHIL % 0.3 % (0-2) CMP: (ERICKA: 02/23/2017 22:30) ( MsgRcvd 02/23/2017 23:25) Final results Test Result Flag Units (Reference) GLUCOSE 83 mg/dL (70-110) BUN 10 mg/dL (7-18) CREATININE 0.8 mg/dL (0.6-1.3) Estimated GFR >60 mL/min Estimated GFR- >60 mL/min Note: Persistent reduction over 3 months in eGFR<60 mL/min/1.73 m2 defines CKD. Patients with eGFR values>=60 mL/min/1.73 m2 may also have CKD if evidence ofpersistent proteinuria. Additional information may be foundat www.kidney.org. SODIUM 133 L mmol/L (136-145) POTASSIUM 3.3 L mmol/L (3.5-5.1) CHLORIDE 100 mmol/L (98-107) CARBON DIOXIDE 27 mmol/L (21-32) CALCIUM 9.1 mg/dL (8.5-10.1) TOTAL PROTEIN 7.1 g/dL (6.4-8.2) ALBUMIN 3.6 g/dL (3.3-5.0) BILIRUBIN, TOTAL 0.4 mg/dL (0.0-1.0) ALKALINE PHOSPHATASE 47 U/L (46-116) AST (SGOT) 14 L U/L (15-37) ALT (SGPT) 21 U/L (12-78) LIPASE 85 U/L (73-393) AMYLASE 45 U/L (25-115) BETA HCG, QUANTITATIVE 66803 mIU/mL REFERENCE RANGE:Adult Males: <2 mIU/mLNon- Females: <6 mIU/mL Females:Approximate Approximate hCGGestational Age Range (mIU/mL) 0-1 week 0-501-2 weeks 40-3002-3 weeks 100-13802-7 weeks 500-67690-5 months 5,000-200,0002-3 months 10,000-100,0002nd trimester 3,000-50,0003rd trimester 1,000-50,000 . PROGRESS AND PROCEDURES Course of Care: T's 142 per nurse. Patient counseled in person regarding the patient's stable condition, test results and diagnosis. 23:26. Differential Diagnosis: I considered gastritis, peptic ulcer disease, gastroesophageal reflux disease, gastroparesis, Crohn's disease, ulcerative colitis, gastric outlet obstruction, colonic obstruction, colon cancer, gastroenteritis, cholecystitis, pancreatitis, viral syndrome, enterocolitis, urinary tract infection, hepatitis, sepsis, drugs, and psychogenic etiology as a possible cause of vomiting in this patient. This is a partial list of diagnoses considered. (uti, pyelo). Above considerations are based on history, physical exam, reassessment and laboratory data. Differential diagnosis was discussed with patient. Disposition: Discharged home in good and improved condition (23:28). Condition: good and stable. CLINICAL IMPRESSION Acute urinary tract infection with cystitis. No pyelonephritis or hematuria. Not associated with indwelling catheter or obstruction. Intractable vomiting with nausea. No dehydration or volume depletion. Not bilious. INSTRUCTIONS Take clear liquids only (frequent sips) for the next 24 hours until better. May continue medications with sips only. Advance diet as tolerated. Avoid. Warnings: GENERAL WARNINGS: Return or contact your physician immediately if your condition worsens or changes unexpectedly, if not improving as expected, or if other problems arise. SPECIFICALLY, return if you develop pain in the abdomen, fever, the inability to keep fluids down, blood in vomitus, blood in diarrhea, fainting, lightheadedness or vaginal bleeding. Prescription Medications: Macrobid 100 mg: Take 1 capsule orally every 12 hours for 7 days. No refills. Substitution is permissible. Reglan 10 mg tablets: take 1 orally every 6 hours. Dispense fifteen (15). No refills. Follow-up: Follow up with your doctor in about two days even if well. Call for an appointment. Summary of care provided to patient. Understanding of the discharge instructions verbalized by patient. (Electronically signed by Laura Torres A.R.N.P. 02/24/2017 13:32)
--- NOTE | 2017-02-23 23:28 | ED ORDER SUMMARY ---
..... Patient: APOLLO CHANDLER OrderSheet [facility] VisitID: [id number] [place] [address] 32y, F Registration Date/Time: 02/23/2017 ORDER SHEET Weight: 91.6 kg (stated) Allergies: Oxycodone, morphine GENERAL ORDERS: UA-Culture if indicated Urgent (22:28 02/23/2017 HBivens A.R.N.P.) (Ack 22:38 AMcQuoid ER Tech1) (22:44 CBradburn R.N.) CBC w Diff Urgent (22:28 02/23/2017 HBivens A.R.N.P.) (Ack 22:38 AMcQuoid ER Tech1) (22:44 CBradburn R.N.) CMP Urgent (22:28 02/23/2017 HBivens A.R.N.P.) (Ack 22:38 AMcQuoid ER Tech1) (22:44 CBradburn R.N.) Serum Quantitative Urgent (22:28 02/23/2017 HBivens A.R.N.P.) (Ack 22:38 AMcQuoid ER Tech1) (22:44 CBradburn R.N.) Lipase Urgent (22:28 02/23/2017 HBivens A.R.N.P.) (Ack 22:38 AMcQuoid ER Tech1) (22:44 CBradburn R.N.) Amylase Urgent (22:28 02/23/2017 HBivens A.R.N.P.) (Ack 22:38 AMcQuoid ER Tech1) (22:44 CBradburn R.N.) Heart Tones (22:29 02/23/2017 HBivens A.R.N.P.) (Ack 22:38 AMcQuoid ER Tech1) (22:44 CBradburn R.N.) MEDICATION ORDERS: IV FLUIDS: IV NS : initial bolus 1000 mL (1000 mL/hr), then none - (NOW) (22:28 02/23/2017 HBivens A.R.N.P.) (22:45 CBradburn R.N.) Reglan IV 10 mg (NOW) (22:28 02/23/2017 HBivens A.R.N.P.) (22:49 Jesu R.N.) IV Saline Lock (22:28 02/23/2017 HBivens A.R.N.P.) (22:45 Jesu R.N.) ORDER SHEET NOTES: [Electronically signed by Anahy Watts R.N. (23:51 02/23/2017)] [Electronically signed by Laura TorresR.N.PVern (13:32 02/24/2017)] [Electronically locked/signed by Anahy Watts R.N. (23:51 02/23/2017)]
--- NOTE | 2017-02-23 23:28 | ED NURSING NOTES ---
Clinical Report - Nurses [facility] [address] [place] [address] 02/23/2017 22:05 Patient: APOLLO CHANDLER TRIAGE Triage time 22:19. Acuity: LEVEL 3. Chief Complaint: NAUSEA and VOMITING. --22:26 Anahy Watts R.N. 22:19 02/23/17. BP: 128/63 taken on the left arm, while lying. HR: 69 (regular and normal rate). RR: 18. O2 saturation: 98%. Temp: 98.3 F (oral). Pain level now: 0/10. --22:26 Anahy Watts R.N. Weight: 91.6 kg stated. Height/Length: 67 inches Per Patient. BMI: 31.7. --22:23 Anahy Watts R.N. Medications Zofran Oral (Tablet 4 mg) 1 tablet, 3x a day. --22:25 Anahy Watts R.N. Allergies Oxycodone. Definite Severe(vomiting) --22:25 Anahy Watts R.N. morphine. Definite Severe(vomiting) (agitation) --22:26 Anahy Watts R.N. History Arrived by private vehicle. Historian: patient. Accompanied by family. Primary physician ([facility]). ( history of hyperemesis, 13 week , vomiting "handful of times" today not eaten since Friday. hx of kidney infections without symptoms until late stages.). 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 PAST MEDICAL HX: Immunizations: up-to-date. 9. Para 2. Currently : LNMP: November 25, 2016. In 2nd trimester. confirmed with sonogram. G 9. P 2. SOCIAL HX: Smoker- current status unknown. Occasional alcohol use. No drug use. No infectious disease exposure. No known contact with a sick individual. ABUSE ASSESSMENT: No report of abuse. SELF HARM ASSESSMENT: A self harm assessment was performed. The patient answered "no" to the question "Have you recently felt down, depressed, or hopeless?", "Have you noticed less interest or pleasure in doing things?", "Do you have thoughts of harming or killing yourself?", "Are you here because you tried to hurt yourself?", "Have you ever tried to hurt yourself before today?", "Have you recently had thoughts about harming or killing others?" and "Do you have any dangerous items in your possession?". FALL RISK ASSESSMENT: Fall risk assessment completed. No fall risk identified. NUTRITIONAL RISK ASSESSMENT: The nutritional risk assessment revealed no deficiencies. FUNCTIONAL ASSESSMENT: Functional assessment: no impairments noted. LEARNING NEEDS ASSESSMENT: The learning needs assessment revealed no barriers. SKIN INTEGRITY ASSESSMENT: Skin integrity risk assessment completed. No skin integrity risk identified. --22:26 Anahy Watts R.N. PROBLEMS: Pelvic Pain. Spontaneous (Miscarriage). OB History. Left leg laceration. Laceration. Mood Disorder. Thrush. Concussion. Nerve damage top of head. TMJ Syndrome. Vomiting. UTI - Urinary Tract Infection. Abdominal Pain. Pyelonephritis. Dental Pain. Hypertension. Immunizations. LNMP - Last Normal Menstrual Period. --22:26 Anahy Watts R.N. ADDITIONAL SURGERIES: Colposcopy. --22:26 Anahy Watts R.N. Interventions ID band on patient. To treatment room. --22:26 Anahy Watts R.N. PHYSICAL ASSESSMENT Ambulatory to room. GENERAL / NEURO / PSYCH: Alert. Oriented X 4. Appears in no acute distress. HEENT: Mucous membranes are pink. RESPIRATORY: Respirations not labored. Breath sounds within normal limits. CVS: Normal sinus rhythm noted. Capillary refill less than 2 seconds. GI / : Abdomen soft and nontender. Bowel sounds within normal limits. SKIN: Skin is warm and dry. --22:27 Anahy Watts R.N. NURSING PROGRESS NOTES Patient gowned. Two patient identifiers checked. Call light placed in reach. Side rails up x 1. Bed placed in lowest position. Brakes of bed on. Patient ready for evaluation- chart flagged. --22:27 Anahy Watts R.N. 22:30 02/23/2017 Site #1 started via IV in the right antecubital space with an 20g angiocath, with aseptic technique and good blood return; one attempt. Blood drawn: rainbow set. Labeled in the presence of the patient and sent to the lab. Saline lock flushed with 10 mL saline. --22:45 Anahy Watts R.N. 22:40 02/23/2017 Started bag #1 1000 mL IV Fluids IV NS (Saline); bolus of 1000 mL wide open then over 1 hour(s) via site #1. Allergies verified and confirmed 5 rights. IV patency established. IV site checked: no pain, redness, or swelling. IV flushed thoroughly pre- and post-medication administration. --22:45 Anahy Watts R.N. 22:49 02/23/2017 Reglan (Metoclopramide HCl) IVP 10 mg given over 2 minute(s) via site #1. Allergies verified and confirmed 5 rights. IV patency established. IV site checked: no pain, redness, or swelling. IV flushed thoroughly pre- and post-medication administration. IVP given by RN. --22:49 Anahy Watts R.N. ( [facility] 142). --23:14 Anahy Watts R.N. DISPOSITION / DISCHARGE 23:40 02/23/2017 IV Fluids IV NS Discontinued: completed upon discharge. Total amount infused: 1000 mL. IV patency established. IV site checked: no pain, redness, or swelling. IV flushed thoroughly. --23:49 Anahy Watts R.N. 23:45 02/23/2017 Site #1 removed upon discharge. Catheter intact. Manual pressure and bandage applied. --23:49 Anahy Watts R.N. 23:45 02/23/2017 IV Saline Lock Drip IV Discontinued: upon discharge. Total amount infused: 0 mL. IV patency established. IV site checked: no pain, redness, or swelling. IV flushed thoroughly. --23:49 Anahy Watts R.N. Departure time: 2344. Condition at departure: improved and stable. No learning barriers present. Discharge instructions provided and reviewed with the patient and spouse. Reviewed medication(s) side effects, precautions, dosing and course information. Prescription(s) given to the patient. Reviewed need for increased fluid intake (as tolerated). Patient verbalized understanding. Written instructions provided in Turkmen. No referrals given to the patient. The patient was discharged home and accompanied by spouse. She left the Emergency Department ambulatory and via private vehicle. Spouse driving. --23:50 Anahy Watts R.N. 23:48 02/23/17. BP: 131/74 taken on the left arm, while lying. HR: 82 (regular and normal rate). RR: 18 (regular and unlabored). O2 saturation: 99% on room air. Temp: deferred. Pain level now: 0/10. --23:50 Anahy Watts R.N. Locked/Released at 02/23/2017 23:51 by Anahy Watts R.N.
--- NOTE | 2017-02-24 13:33 | ED DISCHARGE INSTRUCTIONS ---
Patient: APOLLO CHANDLER General Instructions [facility] VisitID: [id number] [place] [address] 32y, F Registration Date/Time: 02/23/2017 Acute urinary tract infection with cystitis. No pyelonephritis or hematuria. Not associated with indwelling catheter or obstruction. Intractable vomiting with nausea. No dehydration or volume depletion. Not bilious. INSTRUCTIONS Take clear liquids only (frequent sips) for the next 24 hours until better. May continue medications with sips only. Advance diet as tolerated. Avoid. Warnings: GENERAL WARNINGS: Return or contact your physician immediately if your condition worsens or changes unexpectedly, if not improving as expected, or if other problems arise. SPECIFICALLY, return if you develop pain in the abdomen, fever, the inability to keep fluids down, blood in vomitus, blood in diarrhea, fainting, lightheadedness or vaginal bleeding. Prescription Medications: Macrobid 100 mg: Take 1 capsule orally every 12 hours for 7 days. No refills. Substitution is permissible. Reglan 10 mg tablets: take 1 orally every 6 hours. Dispense fifteen (15). No refills. Follow-up: Follow up with your doctor in about two days even if well. Call for an appointment. Summary of care provided to patient. Understanding of the discharge instructions verbalized by patient. ADDITIONAL INFORMATION Vomiting [6Yr-Adult] Vomiting is a common symptom that may be due to different causes. These include gastroenteritis ("stomach flu"), food poisoning and gastritis. There are other more serious causes of vomiting which may be hard to diagnose early in the illness. Therefore, it is important to watch for the warning signs listed below. The main danger from repeated vomiting is dehydration. This is due to excess loss of water and minerals from the body. When this occurs, body fluids must be replaced. Home Care: If symptoms are severe, rest at home for the next 24 hours. You may use acetaminophen (Tylenol) or ibuprofen (Motrin, Advil) to control fever, unless another medicine was prescribed. [NOTE : If you have chronic liver or kidney disease or ever had a stomach ulcer or GI bleeding, talk with your doctor before using these medicines.] (Aspirin should never be used in anyone under 18 years of age who is ill with a fever. It may cause severe liver damage.) Avoid tobacco and alcohol use, which may worsen your symptoms. If medicines for vomiting were prescribed, take as directed. Once vomiting stops, then follow these guidelines: During The First 12-24 Hours follow the diet below: FRUIT JUICES: Apple, grape juice, clear fruit drinks, and electrolyte replacement drinks. BEVERAGES: Soft drinks without caffeine; mineral water (plain or flavored), decaffeinated tea and coffee. SOUPS: Clear broth, consomm and bouillon DESSERTS: Plain gelatin, popsicles and fruit juice bars. As you feel better, you may add 6-8 ounces of yogurt per day. During The Next 24 Hours you may add the following to the above: Hot cereal, plain toast, bread, rolls, crackers Plain noodles, rice, mashed potatoes, chicken noodle or rice soup Unsweetened canned fruit (avoid pineapple), bananas Limit caffeine and chocolate. No spices or seasonings except salt. During The Next 24 Hours Gradually resume a normal diet, as you feel better and your symptoms lessen. Follow Up with your doctor as advised if you are not improving over the next 2-3 days. Get Prompt Medical Attention if any of the following occur: Constant right-sided lower abdominal pain or increasing general abdominal pain Continued vomiting (unable to keep liquids down) for 24 hours Frequent diarrhea (more than 5 times a day); blood (red or black color) or mucus in diarrhea Reduced urine output or extreme thirst Weakness, dizziness or fainting Unusually drowsy or confused Fever of 100.4F (38C) oral or higher, not better with fever medication Yellow color of the eyes or skin Bladder Infection,Female (Adult) A bladder infection ("cystitis" or "UTI") usually causes a constant urge to urinate and a burning when passing urine. Urine may be cloudy, smelly or dark. There may be pain in the lower abdomen. A bladder infection occurs when bacteria from the vaginal area enter the bladder opening (urethra). This can occur from sexual intercourse, wearing tight clothing, dehydration and other factors. Home Care: Drink lots of fluids (at least 6-8 glasses a day, unless you must restrict fluids for other medical reasons). This will force the medicine into your urinary system and flush the bacteria out of your body. Avoid sexual intercourse until your symptoms are gone. Avoid caffeine, alcohol and spicy foods. These can irritate the bladder. A bladder infection is treated with antibiotics. You may also be given Pyridium (generic = phenazopyridine) to reduce the burning sensation. This medicine will cause your urine to become a bright orange color. The orange urine may stain clothing. You may wear a pad or panty-liner to protect clothing. Preventing Future Infections: Always wipe from front to back after a bowel movement. Keep the genital area clean and dry. Drink plenty of fluids each day to avoid dehydration. Both sexual partners should wash before intercourse. Urinate right after intercourse to flush out the bladder. Wear cotton underwear and cotton-lined panty hose; avoid tight-fitting pants. If you are on control pills and are having frequent bladder infections, discuss with your doctor. Follow Up: Return to this facility or see your doctor if ALL symptoms are not gone after three days of treatment. Get Prompt Medical Attention if any of the following occur: Fever of 100.4F (38C) or higher, or as directed by your healthcare provider No improvement by the third day of treatment Increasing back or abdominal pain Repeated vomiting; unable to keep medicine down Weakness, dizziness or fainting Vaginal discharge Pain, redness or swelling in the labia (outer vaginal area) Clear Liquid Diet Clear liquids are any liquid that you can see through as well as those that are very easy to digest. This is used while the body is recovering from irritation or infection of the stomach or intestinal tract. It may also be used before special procedures or surgery. This diet is to be used no more than three days. You may include the following items. Adults Adults should drink a total of 23 quarts of liquid per day. It may be easier to drink small frequent servings rather than a few large ones. Liquids can include: Fruit juices.Strained orange juice or lemonade (no pulp), apple, grape and cranberry juice, clear fruit drinks, sports drinks Beverages.Sport drinks, sodas, mineral water (plain or flavored), tea, black coffee, liquid gelatin (add twice the recommended amount of water) Soups.Clear broth, consomm, bouillon Desserts.Plain gelatin, popsicles, fruit juice bars Children Over 2 years old The following liquids are acceptable for children over age 2: Fruit juices.Strained orange juice or lemonade (no pulp), apple, grape and cranberry juice, clear fruit drinks Beverages. Sports drinks, sodas, mineral water (plain or flavored), tea, liquid gelatin (add twice the recommended amount of water) Soups. Clear broth, consomm, bouillon Desserts. Plain gelatin, popsicles, fruit juice bars Children under 2 years old Oral rehydration fluids such are available at drug stores and most grocery stores without a prescription. Frederick Diet A bland diet is used for patients with an upset stomach. It consists of foods that are mild and easy to digest. It is better to eat small frequent meals rather than three large meals a day. BEVERAGES OK: Fruit juices, non-caffeinated teas and coffee, non-carbonated mckeon AVOID: Carbonated beverage, caffeinated tea and coffee, all alcoholic beverages BREAD OK: Refined white, wheat or rye bread, arpan or soda crackers, [place] toast, plain rolls, bagels AVOID: Whole-grain bread CEREAL OK: Refined cereals: cooked or ready to eat AVOID: Whole grain cereals and granola, or those containing bran, seeds or nuts DESSERTS OK: Peanut butter and all others except those to "avoid" AVOID: Chocolate, cocoa, coconut, popcorn, nuts, seeds, jam, marmalade FRUITS OK: Canned, cooked, frozen or fresh fruits without seeds or tough skin AVOID: Olives, skin and seeds of fruit MEATS OK: All fresh or preserved meat, fish and fowl AVOID: Any that are prepared with those spices to "avoid" CHEESE & EGGS OK: Eggs, cottage cheese, cream cheese, other cheeses AVOID: All cheeses made with those spices to "avoid" POTATOES & PASTA OK: Potato, rice, macaroni, noodles, spaghetti AVOID: None SOUPS OK: All soups without heavy seasoning AVOID: Soups made with those spices to "avoid" VEGETABLES OK: Canned, cooked, fresh or frozen mildly flavored vegetables without seeds, skins or coarse fiber AVOID: Vegetables prepared with those spices to "avoid"; skin and seeds of vegetables and those with coarse fiber SPICES OK: Salt, lemon and tlingit & haida juice, vinegar, all extracts, doc, cinnamon, thyme, mace, allspice, paprika AVOID: [place] powder, cloves, pepper, seed spices, garlic, gravy pickles, highly seasoned salad dressings Clear Liquid Diet Clear liquids are any liquid that you can see through as well as those that are very easy to digest. This is used while the body is recovering from irritation or infection of the stomach or intestinal tract. It may also be used before special procedures or surgery. This diet is to be used no more than three days. You may include the following items. Adults Adults should drink a total of 23 quarts of liquid per day. It may be easier to drink small frequent servings rather than a few large ones. Liquids can include: Fruit juices.Strained orange juice or lemonade (no pulp), apple, grape and cranberry juice, clear fruit drinks, sports drinks Beverages.Sport drinks, sodas, mineral water (plain or flavored), tea, black coffee, liquid gelatin (add twice the recommended amount of water) Soups.Clear broth, consomm, bouillon Desserts.Plain gelatin, popsicles, fruit juice bars Children Over 2 years old The following liquids are acceptable for children over age 2: Fruit juices.Strained orange juice or lemonade (no pulp), apple, grape and cranberry juice, clear fruit drinks Beverages. Sports drinks, sodas, mineral water (plain or flavored), tea, liquid gelatin (add twice the recommended amount of water) Soups. Clear broth, consomm, bouillon Desserts. Plain gelatin, popsicles, fruit juice bars Children under 2 years old Oral rehydration fluids such are available at drug stores and most grocery stores without a prescription. Nitrofurantoin, Nitrofurantoin, Macrocrystalline Oral capsule What is this medicine? NITROFURANTOIN (romina gamino) is an antibiotic. It is used to treat urinary tract infections. How should I use this medicine? Take this medicine by mouth with a glass of water. Follow the directions on the prescription label. Take this medicine with food or milk. Take your doses at regular intervals. Do not take your medicine more often than directed. Do not stop taking except on your doctor's advice. Talk to your planimeter operator regarding the use of this medicine in children. While this drug may be prescribed for selected conditions, precautions do apply. What side effects may I notice from receiving this medicine? Side effects that you should report to your doctor or health career technical education teacher as soon as possible: allergic reactions like skin rash or hives, swelling of the face, lips, or tongue chest pain cough difficulty breathing dizziness, drowsiness fever or infection joint aches or pains pale or blue-tinted skin redness, blistering, peeling or loosening of the skin, including inside the mouth tingling, burning, pain, or numbness in hands or feet unusual bleeding or bruising unusually weak or tired yellowing of eyes or skin Side effects that usually do not require medical attention (report to your doctor or health career technical education teacher if they continue or are bothersome): dark urine diarrhea headache loss of appetite nausea or vomiting temporary hair loss What may interact with this medicine? antacids containing magnesium trisilicate probenecid quinolone antibiotics like ciprofloxacin, lomefloxacin, norfloxacin and ofloxacin sulfinpyrazone What if I miss a dose? If you miss a dose, take it as soon as you can. If it is almost time for your next dose, take only that dose. Do not take double or extra doses. Where should I keep my medicine? Keep out of the reach of children. Store at room temperature between 15 and 30 degrees C (59 and 86 degrees F). Protect from light. Throw away any unused medicine after the expiration date. What should I tell my health care provider before I take this medicine? They need to know if you have any of these conditions: anemia diabetes [id number] dehydrogenase deficiency kidney disease liver disease lung disease other chronic illness an unusual or allergic reaction to nitrofurantoin, other antibiotics, other medicines, foods, dyes or preservatives or trying to get breast-feeding What should I watch for while using this medicine? Tell your doctor or health career technical education teacher if your symptoms do not improve or if you get new symptoms. Drink several glasses of water a day. If you are taking this medicine for a long time, visit your doctor for regular checks on your progress. If you are diabetic, you may get a false positive result for sugar in your urine with certain brands of urine tests. Check with your doctor. Metoclopramide Hydrochloride Oral tablet What is this medicine? METOCLOPRAMIDE (met oh kloe PRA mide) is used to treat the symptoms of gastroesophageal reflux disease (GERD) like heartburn. It is also used to treat people with slow emptying of the stomach and intestinal tract. How should I use this medicine? Take this medicine by mouth with a glass of water. Follow the directions on the prescription label. Take this medicine on an empty stomach, about 30 minutes before eating. Take your doses at regular intervals. Do not take your medicine more often than directed. Do not stop taking except on the advice of your doctor or health career technical education teacher. A special MedGuide will be given to you by the pharmacist with each prescription and refill. Be sure to read this information carefully each time. Talk to your planimeter operator regarding the use of this medicine in children. Special care may be needed. What side effects may I notice from receiving this medicine? Side effects that you should report to your doctor or health career technical education teacher as soon as possible: allergic reactions like skin rash, itching or hives, swelling of the face, lips, or tongue abnormal production of milk in females breast enlargement in both males and females change in the way you walk difficulty moving, speaking or swallowing drooling, lip smacking, or rapid movements of the tongue excessive sweating fever involuntary or uncontrollable movements of the eyes, head, arms and legs irregular heartbeat or palpitations muscle twitches and spasms unusually weak or tired Side effects that usually do not require medical attention (report to your doctor or health career technical education teacher if they continue or are bothersome): change in sex drive or performance depressed mood diarrhea difficulty sleeping headache menstrual changes restless or nervous What may interact with this medicine? acetaminophen cyclosporine digoxin medicines for blood pressure medicines for diabetes, including insulin medicines for hay fever and other allergies medicines for depression, especially an Monoamine Oxidase Inhibitor (MAOI) medicines for Parkinson's disease, like levodopa medicines for sleep or for pain tetracycline What if I miss a dose? If you miss a dose, take it as soon as you can. If it is almost time for your next dose, take only that dose. Do not take double or extra doses. Where should I keep my medicine? Keep out of the reach of children. Store at room temperature between 20 and 25 degrees C (68 and 77 degrees F). Protect from light. Keep container tightly closed. Throw away any unused medicine after the expiration date. What should I tell my health care provider before I take this medicine? They need to know if you have any of these conditions: breast cancer depression diabetes heart failure high blood pressure kidney disease liver disease Parkinson's disease or a movement disorder pheochromocytoma seizures stomach obstruction, bleeding, or perforation an unusual or allergic reaction to metoclopramide, procainamide, sulfites, other medicines, foods, dyes, or preservatives or trying to get breast-feeding What should I watch for while using this medicine? It may take a few weeks for your stomach condition to start to get better. However, do not take this medicine for longer than 12 weeks. The longer you take this medicine, and the more you take it, the greater your chances are of developing serious side effects. If you are an elderly patient, a female patient, or you have diabetes, you may be at an increased risk for side effects from this medicine. Contact your doctor immediately if you start having movements you cannot control such as lip smacking, rapid movements of the tongue, involuntary or uncontrollable movements of the eyes, head, arms and legs, or muscle twitches and spasms. Patients and their families should watch out for worsening depression or thoughts of suicide. Also watch out for any sudden or severe changes in feelings such as feeling anxious, agitated, panicky, irritable, hostile, aggressive, impulsive, severely restless, overly excited and hyperactive, or not being able to sleep. If this happens, especially at the beginning of treatment or after a change in dose, call your doctor. Do not treat yourself for high fever. Ask your doctor or health career technical education teacher for advice. You may get drowsy or dizzy. Do not drive, use machinery, or do anything that needs mental alertness until you know how this drug affects you. Do not stand or sit up quickly, especially if you are an older patient. This reduces the risk of dizzy or fainting spells. Alcohol can make you more drowsy and dizzy. Avoid alcoholic drinks. You have been given the following additional information: Vomiting (6Y-Adult) Bladder Infection, Female (Adult) Diet, Clear Liquid Diet, Frederick (Adult) Diet, Clear Liquid Nitrofurantoin, Nitrofurantoin, Macrocrystalline Oral capsule Metoclopramide Hydrochloride Oral tablet (Electronically signed by Laura Torres A.R.N.PVern 02/24/2017 13:32)
--- NOTE | 2017-02-24 13:33 | ED MAR SUMMARY ---
..... Medication Administration Record [facility] [address] [place] [address] Patient: APOLLO CHANDLER Visit ID: [id number] 32y, F Weight: 91.6 kg Height/Length: 67 in BMI: 31.7 ALLERGIES: morphine, Oxycodone Start 22:40 02/23/2017 Anahy Watts R.N., Stop 23:40 02/23/2017 Anahy Watts R.N. Medication Administered: IV NS (SALINE), Dose: IV Fluids over 1 hour(s), Bolus: 1000 mL wide open, Dispensed: 1000 mL bag, Site: #1 right AC. Medication Ordered: IV NS : initial bolus 1000 mL (1000 mL/hr), then none - (NOW). Given 22:49 02/23/2017 Anahy Watts R.N. Medication Administered: REGLAN [IVP] (METOCLOPRAMIDE HCL), Dose: 10 mg IVP over 2 minute(s), Site: #1 right AC. Medication Ordered: Reglan IV 10 mg (NOW).
--- NOTE | 2017-02-24 13:33 | ED MED RECONCILIATION SUMMARY ---
Patient: APOLLO CHANDLER Medication Reconciliation Report [facility] VisitID: [id number] [address] [place] [address] 32y, F Registration Date/Time: 02/23/2017 Weight: 91.6 kg Height/Length: 67 in. BMI: 31.7 ALLERGIES: morphine, Oxycodone The patient's Home Medications are listed below: THE FOLLOWING MEDICATIONS NEED TO BE RECONCILED: Zofran Oral (4 mg) 1 tablet, 3x a day The source(s) of the original Home Medication information: Not obtained. The following Medications were given to the patient in the Emergency Department: IV NS IV Fluids bolus 1000 mL wide open, administered: 02/23/2017 10:40:00 PM Reglan [IVP] IVP 10 mg, administered: 02/23/2017 10:49:00 PM The following Medications were prescribed to the patient: Macrobid 100 mg: Take 1 capsule orally every 12 hours for 7 days. No refills. Substitution is permissible. -- Laura Torres A.RVernNVernP. Reglan 10 mg tablets: take 1 orally every 6 hours. Dispense fifteen (15). No refills. -- Laura Torres A.R.N.P.
--- NOTE | 2017-02-24 13:33 | ED MED RECONCILIATION SUMMARY ---
Patient: APOLLO CHANDLER Medication Reconciliation Report [facility] VisitID: [id number] [address] [place] [address] 32y, F Registration Date/Time: 02/23/2017 Weight: 91.6 kg Height/Length: 67 in. BMI: 31.7 ALLERGIES: morphine, Oxycodone The patient's Home Medications are listed below: THE FOLLOWING MEDICATIONS NEED TO BE RECONCILED: Zofran Oral (4 mg) 1 tablet, 3x a day The source(s) of the original Home Medication information: Not obtained. The following Medications were given to the patient in the Emergency Department: IV NS IV Fluids bolus 1000 mL wide open, administered: 02/23/2017 10:40:00 PM Reglan [IVP] IVP 10 mg, administered: 02/23/2017 10:49:00 PM The following Medications were prescribed to the patient: Macrobid 100 mg: Take 1 capsule orally every 12 hours for 7 days. No refills. Substitution is permissible. -- Laura Torres A.RVernNVernP. Reglan 10 mg tablets: take 1 orally every 6 hours. Dispense fifteen (15). No refills. -- Laura Torres A.R.N.P.
--- NOTE | 2017-02-24 13:33 | ED MAR SUMMARY ---
..... Medication Administration Record [facility] [address] [place] [address] Patient: APOLLO CHANDLER Visit ID: [id number] 32y, F Weight: 91.6 kg Height/Length: 67 in BMI: 31.7 ALLERGIES: morphine, Oxycodone Start 22:40 02/23/2017 Anahy Watts R.N., Stop 23:40 02/23/2017 Anahy Watts R.N. Medication Administered: IV NS (SALINE), Dose: IV Fluids over 1 hour(s), Bolus: 1000 mL wide open, Dispensed: 1000 mL bag, Site: #1 right AC. Medication Ordered: IV NS : initial bolus 1000 mL (1000 mL/hr), then none - (NOW). Given 22:49 02/23/2017 Anahy Watts R.N. Medication Administered: REGLAN [IVP] (METOCLOPRAMIDE HCL), Dose: 10 mg IVP over 2 minute(s), Site: #1 right AC. Medication Ordered: Reglan IV 10 mg (NOW).
== END 2017-02-23 23:45 | disposition home or self-care (01) ==
LOC: ED SRH 22:05
DX: O23.11 Infections of bladder in pregnancy, first trimester (principal); Z3A.00 Weeks of gestation of pregnancy not specified; O21.0 Mild hyperemesis gravidarum; I10 Essential (primary) hypertension
CPT/HCPCS: 90004; 90100; 90197; 90469; 92235; 92530; 95059